=== PATIENT | female | born 1990 | race Caucasian/White ===

== ENCOUNTER 2020-04-20 10:25 | Inpatient (IN) | payer OTHER ==
[~2020-04-20] VITALS: Ht 166 cm; Wt 79.8 kg
[2020-04-20] MEDS: DEXTROSE 5%-LACTATED RINGERS 1,000 ML IV SCH ×2 (01:23→22:02)
[2020-04-20] MEDS ORDERED: PREN-18 PO (10:26)
[2020-04-20 10:52] VITALS: BP 129/77
[2020-04-20 10:54] LABS: BASOPHILS % (AUTO) 0.3 % (0.0-2.0); EOSINOPHILS % (AUTO) 0.1 % (1.0-6.0); HEMATOCRIT 37.2 % (36-46); HEMOGLOBIN 12.6 g/dL (12.0-16.0); LYMPHOCYTES # (AUTO) 2.9 K/uL (1.0-4.8); LYMPHOCYTES % (AUTO) 22.2 % (22.0-44.0); MEAN CORPUSCULAR HEMOGLOBIN 32.2 pg (26.0-34.0); MEAN CORPUSCULAR HGB CONC 33.9 G/dL (31.0-37.0); MEAN CORPUSCULAR VOLUME 95 fL (80-100); NEUTROPHILS # (AUTO) 9.1 K/uL (1.8-7.7); NEUTROPHILS % (AUTO) 69.4 % (40.0-70.0); PLATELET COUNT (AUTO) 256 K/uL (150-450); RED CELL DISTRIBUTION WIDTH 13.4 % (11.5-14.5)
[2020-04-20 11:03] LABS: ANION GAP 8 mmol/L (8-16); CALCIUM, TOTAL 9.2 mg/dL (8.8-10.5); CARBON DIOXIDE 26 mmol/L (22-29); CHLORIDE 99 mmol/L (98-107); GLOMERULAR FILTR. RATE CALC > 60 mL/min (>60); GLUCOSE,RANDOM 104 mg/dL (70-110); POTASSIUM 4.1 mmol/L (3.5-5.1); SODIUM SERUM 133 mmol/L (136-145); UREA NITROGEN, BLOOD 9 mg/dL (7-18)
[2020-04-20 11:09] LABS: ALANINE AMINOTRANSFERASE 22 U/L (12-78); ALKALINE PHOSPHATASE 112 U/L (46-116); ASPARTATE AMINOTRANSFERASE 17 U/L (15-37); BILIRUBIN,TOTAL 0.2 mg/dL (0.1-1.0); TOTAL PROTEIN, SERUM 7.5 g/dL (6.4-8.2); URIC ACID 2.7 mg/dL (2.6-7.2)
[2020-04-20 12:22] LABS: CREATININE,URINE RANDOM 87.4 mg/dL (30.0-125.0)
[2020-04-20] MEDS ORDERED: BETAMETHASONE SOLUSPAN 6 MG/ML 5 ML VIAL IM ONE (12:45)
[2020-04-21] MEDS: DEXTROSE 5%-LACTATED RINGERS 1,000 ML IV SCH ×3 (04:27→13:01)
[2020-04-21] MEDS ORDERED: 0.9% SODIUM CHLORIDE 10 ML VIAL IVP ONE (12:00)
[2020-04-21] MEDS ORDERED: KETOROLAC TROMETHAMINE 60 MG/2 ML VIAL IM ONE (12:00)
[2020-04-21] MEDS ORDERED: DEXAMETHASONE SOD PHOS 4 MG/ML VIAL IVP ONE (12:00)
[2020-04-21] MEDS ORDERED: EPHEDrine SULFATE 50 MG/ML VIAL IM ONE (12:00)
[2020-04-21] MEDS ORDERED: OXYTOCIN 10 UNITS/ML VIAL IM ONE (12:00)
[2020-04-21] MEDS ORDERED: RINGERS SOLUTION,LACTATED 1,000 ML IV SCH (13:39)
[2020-04-21] MEDS ORDERED: RINGERS SOLUTION,LACTATED 1,000 ML IV PRN (13:39)
[2020-04-21] MEDS ORDERED: METOCLOPRAMIDE HCL 5 MG/ML 2 ML VIAL IVP PRN (13:45)
[2020-04-21] MEDS ORDERED: OXYGEN THERAPY IH SCH ×3 (13:45→20:00)
[2020-04-21] MEDS ORDERED: CITRIC ACID/SODIUM CITRATE 30 ML SOLUTION UDCUP PO PRN (13:45)
[2020-04-21 14:17] LABS: BASOPHILS % (AUTO) 0.4 % (0.0-2.0); EOSINOPHILS % (AUTO) 0.1 % (1.0-6.0); LYMPHOCYTES # (AUTO) 2.6 K/uL (1.0-4.8); LYMPHOCYTES % (AUTO) 20.9 % (22.0-44.0); MEAN CORPUSCULAR HEMOGLOBIN 31.2 pg (26.0-34.0); MEAN CORPUSCULAR HGB CONC 32.4 G/dL (31.0-37.0); MEAN CORPUSCULAR VOLUME 96 fL (80-100); MONOCYTES # (AUTO) 1.4 K/uL (0.1-1.0); NEUTROPHILS # (AUTO) 8.6 K/uL (1.8-7.7); NEUTROPHILS % (AUTO) 67.6 % (40.0-70.0); PLATELET COUNT (AUTO)-OB 212 K/uL (150-450); RED BLOOD CELL COUNT(AUTO) 3.53 MIL/uL (4.00-5.20); RED CELL DISTRIBUTION WIDTH 13.2 % (11.5-14.5)
[2020-04-21] MEDS ORDERED: ONDANSETRON HCL 4 MG/2 ML VIAL IVP PRN ×2 (17:00→17:15)
[2020-04-21] MEDS ORDERED: FentaNYL CITRATE-PF 100 MCG/2 ML VIAL IVP PRN ×2 (17:00→17:15)
[2020-04-21] MEDS ORDERED: NALOXONE HCL 0.4 MG/ML VIAL IVP PRN (17:00)
[2020-04-21] MEDS ORDERED: NALBUPHINE HCL 10 MG/ML VIAL IVP PRN ×2 (17:00)
[2020-04-21] MEDS ORDERED: DiphenhydrAMINE HCL 50 MG/ML VIAL IVP PRN (17:00)
[2020-04-21] MEDS ORDERED: MORPHINE SULFATE 10 MG/ML SYRINGE IVP PRN (17:00)
[2020-04-21] MEDS ORDERED: ACETAMINOPHEN 1000 MG/ISO-OSM 100 ML IV ONE (17:05)
[2020-04-21] MEDS ORDERED: BUPIVACAINE HCL/DEX-WATER/PF 0.75% 2 ML AMP ONE (17:05)
[2020-04-21] MEDS ORDERED: MORPHINE SULFATE/PF 1 MG/ML 10 ML AMP ONE (17:05)
[2020-04-21] MEDS ORDERED: FentaNYL CITRATE-PF 100 MCG/2 ML VIAL ONE (17:05)
[2020-04-21] MEDS ORDERED: ACETAMINOPHEN/CODEINE 300-30 MG TABLET PO PRN ×2 (18:30)
[2020-04-21] MEDS ORDERED: LANOLIN 7 GM OINTMENT TP PRN (18:30)
[2020-04-21] MEDS: MAGNESIUM HYDROXIDE SUSPENSION 30 ML UDCUP PO SCH (21:00)
[2020-04-21] MEDS: DEXTROSE 5%-0.45% SODIUM CHL 1,000 ML IV SCH (21:09)
[2020-04-21] MEDS: KETOROLAC TROMETHAMINE 30 MG/ML VIAL IVP SCH (22:30)
[2020-04-21] MEDS: ACETAMINOPHEN 1000 MG/ISO-OSM 100 ML IV SCH (22:30)
[2020-04-22] MEDS: DEXTROSE 5%-0.45% SODIUM CHL 1,000 ML IV SCH ×3 (01:36→09:50)
[2020-04-22] MEDS: KETOROLAC TROMETHAMINE 30 MG/ML VIAL IVP SCH (05:14)
[2020-04-22] MEDS: ACETAMINOPHEN 1000 MG/ISO-OSM 100 ML IV SCH (05:16)
[2020-04-22] MEDS: MAGNESIUM HYDROXIDE SUSPENSION 30 ML UDCUP PO SCH ×2 (07:55→20:36)
[2020-04-22] MEDS: IBUPROFEN 800 MG TABLET PO SCH ×2 (13:36→20:36)
[2020-04-23] MEDS: IBUPROFEN 800 MG TABLET PO SCH ×6 (02:11→20:47)
[2020-04-23] MEDS: MAGNESIUM HYDROXIDE SUSPENSION 30 ML UDCUP PO SCH ×2 (09:29→20:47)
[2020-04-24] MEDS: IBUPROFEN 800 MG TABLET PO SCH ×2 (03:29→09:30)
[2020-04-24] MEDS: MAGNESIUM HYDROXIDE SUSPENSION 30 ML UDCUP PO SCH (09:26)
[2020-04-24] MEDS ORDERED: IBUP-2071 PO (13:14)
== END 2020-04-24 13:55 | disposition home or self-care (01) | DRG 786 ==
LOC: 4S 10:25 → OBSVTOIN 10:25 → INTOOBSV 13:39 → 4S 04-21 19:53
PROVIDERS: ADMIT Obstetrics & Gynecology; ATTEND Obstetrics & Gynecology
PROC: 10D00Z1 Extraction of Products of Conception, Low, Open Approach (ICD-10-PCS; principal; 2020-04-21)
DX: O76 Abnormality in fetal heart rate and rhythm complicating labor and delivery (principal); O60.14X0 Preterm labor third trimester with preterm delivery third trimester, not applicable or unspecified; Z3A.34 34 weeks gestation of pregnancy; Z37.0 Single live birth
CPT/HCPCS: 59025; 76811; 82570; 84156; 84550; 86850; 86900; 86901; 96360; 96361; 99219; J0131; J0690; J0702; J1100; J1885; J2590; J2765; J3010; J3490; J7120